=== PATIENT | female | born 1990 | race Two or more races ===

== ENCOUNTER 2017-02-14 05:42 | Inpatient (IN) | payer OTHER ==
[~2017-02-14] VITALS: Ht 157.5 cm; Wt 59.0 kg
[2017-02-28] MEDS ORDERED: PANTOPRAZOLE SO40 MG PO (08:15)
[2017-02-28] MEDS ORDERED: Intestinex CAP PO (08:16)
[2017-02-28] MEDS ORDERED: ULTRACET PO (08:17)
[2017-02-28] MEDS ORDERED: PREDNISONE20 MG PO (08:17)
== END 2017-02-28 11:08 | disposition home or self-care (01) | DRG 386 ==
LOC: ER 05:42 → SURH 07:09 → SEC-K 07:09 → O/R 10:00 → SURH 14:20
PROVIDERS: Surgery
PROC: 0DJD7ZZ Inspection of Lower Intestinal Tract, Via Natural or Artificial Opening (ICD-10-PCS; 2017-02-14)
PROC: 0DBP8ZX Excision of Rectum, Via Natural or Artificial Opening Endoscopic, Diagnostic (ICD-10-PCS; principal; 2017-02-14 11:30)
PROC: BW21Y0Z Computerized Tomography (CT Scan) of Abdomen and Pelvis using Other Contrast, Unenhanced and Enhanced (ICD-10-PCS; 2017-02-15)
PROC: BW3GY0Z Magnetic Resonance Imaging (MRI) of Pelvic Region using Other Contrast, Unenhanced and Enhanced (ICD-10-PCS; 2017-02-15)
PROC: 3E0436Z Introduction of Nutritional Substance into Central Vein, Percutaneous Approach (ICD-10-PCS; 2017-02-15)
PROC: 02HV33Z Insertion of Infusion Device into Superior Vena Cava, Percutaneous Approach (ICD-10-PCS; 2017-02-16)
DX: K50.114 Crohn's disease of large intestine with abscess (principal); K62.4 Stenosis of anus and rectum; K62.89 Other specified diseases of anus and rectum; K64.5 Perianal venous thrombosis; K50.111 Crohn's disease of large intestine with rectal bleeding; B96.20 Unspecified Escherichia coli [E. coli] as the cause of diseases classified elsewhere; B96.4 Proteus (mirabilis) (morganii) as the cause of diseases classified elsewhere; B96.1 Klebsiella pneumoniae [K. pneumoniae] as the cause of diseases classified elsewhere; B95.2 Enterococcus as the cause of diseases classified elsewhere; B96.7 Clostridium perfringens [C. perfringens] as the cause of diseases classified elsewhere; D50.0 Iron deficiency anemia secondary to blood loss (chronic); D72.828 Other elevated white blood cell count
CPT/HCPCS: 72196

== ENCOUNTER 2017-05-29 04:39 | Inpatient (IN) | payer OTHER ==
[~2017-05-29] VITALS: Ht 157.5 cm; Wt 57.6 kg
[~2017-05-29 04:39] MED LIST: Intestinex CAP PO; PANTOPRAZOLE SO40 MG PO; PREDNISONE20 MG PO; ULTRACET PO
[2017-06-04] MEDS ORDERED: CIPRO500 MG PO (10:51)
[2017-06-04] MEDS ORDERED: METRONIDAZOLE500 MG PO (10:51)
[2017-06-04] MEDS ORDERED: INTESTINEX680 M1 PO (10:51)
[2017-06-04] MEDS ORDERED: PANTOPRAZOLE SO40 MG PO (10:52)
== END 2017-06-04 13:24 | disposition home or self-care (01) | DRG 372 ==
LOC: ER 04:39 → ICU-2 08:39 → SURH 08:39 → SEC-K 08:39 → MEDI 08:39 → SEC-K 09:03 → SURH 12:00 → ICU-2 14:55 → SEC-K 05-30 16:43 → MEDI 05-31 03:51
PROC: 4A12X4Z Monitoring of Cardiac Electrical Activity, External Approach (ICD-10-PCS; principal; 2017-05-31)
DX: A04.72 Enterocolitis due to Clostridium difficile, not specified as recurrent (principal); N17.8 Other acute kidney failure; K50.118 Crohn's disease of large intestine with other complication; E86.0 Dehydration; E86.1 Hypovolemia

== ENCOUNTER 2018-02-17 14:41 | Emergency (ER) | payer OTHER ==
[~2018-02-17] VITALS: Ht 160 cm; Wt 56.7 kg
[~2018-02-17 14:41] MED LIST changes: +CIPRO500 MG PO; +INTESTINEX680 M1 PO; +METRONIDAZOLE500 MG PO
[2018-02-17] MEDS ORDERED: BACTRIM DS TAB1 EACH PO (18:07)
== END 2018-02-17 18:26 | disposition home or self-care (01) ==
LOC: ER 14:41
DX: N76.2 Acute vulvitis (principal)